=== PATIENT | female | born 1950 | race African-American/Black ===

== ENCOUNTER 2022-11-06 08:47 | Emergency (ER) | payer MEDICARE, MEDICAID ==
[~2022-11-06] VITALS: Ht 162.6 cm; Wt 68.5 kg
[2022-11-06 08:51] VITALS: BP 126/63
[2022-11-06] MEDS ORDERED: METHOCARBAMOL 500MG TABLET PO ONE (09:15)
[2022-11-06] MEDS ORDERED: ACETAMINOPHEN 325MG TABLET PO ONE (09:15)
[2022-11-06] MEDS ORDERED: IBUP-2028 MT (11:03)
== END 2022-11-06 11:31 | disposition home or self-care (01) ==
LOC: ER 09:04 → EDBD 09:04 → ER 11:31
DX: M54.2 Cervicalgia (principal); J44.9 Chronic obstructive pulmonary disease, unspecified; Y08.89XA Assault by other specified means, initial encounter; Y93.89 Activity, other specified; Y92.89 Other specified places as the place of occurrence of the external cause; Y99.8 Other external cause status
CPT/HCPCS: 99284